=== PATIENT | female | born 1945 | race Caucasian/White ===

== ENCOUNTER 2019-04-08 10:31 | Emergency (ER) | payer MEDICARE ==
[~2019-04-08] VITALS: Ht 160 cm; Wt 55.5 kg
[2019-04-08] MEDS ORDERED: ondansetron/PF 4mg/2ml inj IV ONE (11:25)
[2019-04-08] MEDS ORDERED: morphine 2 MG/ML inj. syringe IV ONE (11:25)
[2019-04-08] MEDS ORDERED: morphine 4 MG/ML inj SYRINge IM ONE (12:25)
[2019-04-08] MEDS ORDERED: ondansetron 4mg rapidly disintigrating tab PO ONE ×2 (12:25→12:55)
--- NOTE | 2019-04-08 13:13 | NUR ---
Asked to arrange hospice for this pt. Placed call to Mulugeta at [facility] and she tells me that they can open pt to services as early as tomorrow. Referral packet faxed to [facility] along w/ pt's physical home address. ER notified of referral, pt to be dc'd home today. Continue to monitor.
[2019-04-08 13:27] VITALS: BP 142/74
== END 2019-04-08 13:30 | disposition home or self-care (01) ==
LOC: ER 10:32
DX: J44.1 Chronic obstructive pulmonary disease with (acute) exacerbation (principal); R10.9 Unspecified abdominal pain; R51 Headache; R25.1 Tremor, unspecified; Z87.891 Personal history of nicotine dependence
CPT/HCPCS: 71045; 93005; 96372; 99283; J2270; J2405; 99284